=== PATIENT | male | born 1940 | race Caucasian/White ===

== ENCOUNTER 2019-03-23 09:09 | Emergency (ER) | payer MEDICARE, OTHER ==
[~2019-03-23] VITALS: Ht 182.9 cm; Wt 83.9 kg
[2019-03-23] MEDS ORDERED: HYDROCHLOROTHIA25 MG PO (09:36)
[2019-03-23] MEDS ORDERED: SYNTHROID88 MCG PO (09:37)
[2019-03-23] MEDS ORDERED: LIPITOR20 MG PO (09:37)
[2019-03-23] MEDS ORDERED: VITAMIN D31000 UNIT PO (09:38)
[2019-03-23] MEDS ORDERED: TENORMIN25 MG PO (09:38)
[2019-03-23] MEDS ORDERED: MAGNESIUM250 M1 PO (09:38)
[2019-03-23] MEDS ORDERED: VITAMIN E1000 UNI1 PO (09:38)
[2019-03-23] MEDS ORDERED: POTASSIUM99 MG PO (09:39)
--- NOTE | 2019-03-24 12:43 | EKG ---
[facility] [address] [place], [place] [address] Signed Sinus bradycardia Otherwise normal ECG No previous ECGs available Confirmed by RODNEY MG DO ([id number]) on 03/24/2019 12:42:57 PM Electronically Signed By: RODNEY MG DO 03/24/19 1243 PATIENT NAME: COURTNEY SOTO Electrocardiogram DATE OF : 38 PHYSICIAN: RODNEY MG DO REPORT #: [id number] REPORT IS CONFIDENTIAL AND NOT TO BE RELEASED WITHOUT AUTHORIZATION
== END 2019-03-23 13:11 | disposition home or self-care (01) ==
LOC: ED 09:09
DX: R07.89 Other chest pain (principal); R06.02 Shortness of breath; Z79.899 Other long term (current) drug therapy
CPT/HCPCS: 36415; 71045; 80053; 83880; 84484; 85025; 85379; 93005; 93010; 99285-25